=== PATIENT | female | born 1990 | race Caucasian/White ===

== ENCOUNTER → 2021-02-01 09:58 | Outpatient (CLI) | payer BC, SELFPAY ==
--- NOTE | ~2021-02-01 | US_ITS ---
EXAMINATION: US OB >= 14 weeks Fetus DATE: 02/01/2021 10:55 INDICATION: Second trimester anatomic survey TECHNIQUE: Real-time ultrasound of the pelvis was performed. COMPARISON: None. FINDINGS: There is a single living fetus in breech presentation. The placenta is anterior and 3.6 cm from the i nternal cervical os. heart rate is 147 beats per minute (bpm). cardiac activity and feta l movement are noted. The amniotic fluid index is subjectively normal. The ventricular outflow tracts and kidneys are not well evaluated due to positioning. The follo wing anatomy was identified as normal: 4 chamber heart 3 vessel cord cord insertion urinary bladder stomach spine diaphragm ventricles cisterna magna cerebellum The following biometric data were obtained: Biparietal diameter (BPD): 4.1 cm; head circumference (HC): 16.1 cm; abdominal circumference (AC): 13 .9 cm; femur length (FL): 3.2 cm. These measurements are concordant. Estimated weight is 298 g +/- 44 g, which correlates with the 69th percentile when 06/27/2021 i s used as estimated date of delivery. As single measurements, these parameters are each equal to the following estimated gestational ages w ith ranges of +/- 2 standard deviations: BPD: 18 weeks 5 days ( 17 weeks 0 days - 20 weeks 3 days). HC: 18 weeks 6 days ( 17 weeks 3 days - 20 weeks 3 days). AC: 19 weeks 2 days ( 17 weeks 2 days - 21 weeks 3 days). FL: 20 weeks 0 days ( 18 weeks 1 days - 21 weeks 5 days). estimated gestational age based solely on measurements from this exam is 19 weeks 2 days +/- 1 weeks 2 days. IMPRESSION: 1. Single living fetus in breech presentation. 2. Estimated weight is 298 g +/- 44 g, which correlates with the 69th percentile when is used as estimated date of delivery. 3. Incomplete evaluation of the heart and kidneys. Reviewed, dictated and finalized at location A. IMPRESSION: 1. Single living fetus in breech presentation. 2. Estimated weight is 298 g +/- 44 g, which correlates with the 69th per centile when 06/27/2021 is used as estimated date of delivery. 3. Incomplete evaluation of the heart and kidneys.
== END ==
PROVIDERS: Visit Provider Nurse Practitioner Obstetrics & Gynecology
DX: Z34.92 Encounter for supervision of normal pregnancy, unspecified, second trimester (principal); Z3A.19 19 weeks gestation of pregnancy
CPT/HCPCS: 76805

== ENCOUNTER → 2021-02-22 10:53 | Outpatient (CLI) | payer BC, SELFPAY ==
--- NOTE | ~2021-02-22 | US_ITS ---
EXAMINATION: US OB limited DATE: 02/22/2021 11:43 INDICATION: Incomplete anatomic survey during second trimester . TECHNIQUE: Real-time ultrasound of the pelvis was performed. The interpreting radiologist was not pre sent for the study. COMPARISON: 02/01/2021 FINDINGS: There is a single living fetus in breech presentation. The placenta is anterior with caudal margin 4 .1 cm from the internal cervical os. heart rate is 136 beats per minute (bpm). The amniotic flu id volume is subjectively normal. The heart and kidneys are normal. IMPRESSION: 1. Single living fetus in breech presentation with heart rate of bpm. 2. The heart and kidneys are normal Reviewed, dictated and finalized at location A.
== END ==
PROVIDERS: Visit Provider Obstetrics & Gynecology
DX: Z36.9 Encounter for antenatal screening, unspecified (principal); O32.1XX0 Maternal care for breech presentation, not applicable or unspecified; Z3A.00 Weeks of gestation of pregnancy not specified
CPT/HCPCS: 76815

== ENCOUNTER → 2023-02-15 11:23 | Outpatient (CLI) | payer BC, SELFPAY ==
--- NOTE | ~2023-02-15 | US_ITS ---
EXAMINATION: US OB /maternal detail DATE: 02/15/2023 12:10 INDICATION: Second trimester anatomic survey TECHNIQUE: Real-time ultrasound of the pelvis was performed. COMPARISON: None. FINDINGS: There is a single living fetus in transverse lie. The placenta is posterior and 4.4 cm from the inter nal cervical os. The cervical length is 3 cm. heart rate is 155 beats per minute (bpm). cardiac activity and movement are noted. The amniotic fluid index is subjectively normal. The following anatomy was identified as normal: 4 chamber heart 3 vessel cord cord insertion kidneys urinary bladder stomach spine diaphragm ventricles cisterna magna cerebellum The following biometric data were obtained: Biparietal diameter (BPD): 4.6 cm; head circumference (HC): 17.3 cm; abdominal circumference (AC): 15 .3 cm; femur length (FL): 3.4 cm. These measurements are concordant. Estimated weight is 355 g +/- 53 g, which correlates with the 94th percentile when 07/09/2023 i s used as estimated date of delivery. As single measurements, these parameters are each equal to the following estimated gestational ages w ith ranges of +/- 2 standard deviations: BPD: 19 weeks 5 days ( 18 weeks 0 days - 21 weeks 3 days). HC: 19 weeks 6 days ( 18 weeks 3 days - 21 weeks 2 days). AC: 20 weeks 4 days ( 18 weeks 3 days - 22 weeks 4 days). FL: 20 weeks 4 days ( 18 weeks 6 days - 22 weeks 3 days). estimated gestational age based solely on measurements from this exam is 20 weeks 1 days +/- 1 weeks 3 days. IMPRESSION: 1. Single living fetus in transverse lie. 2. Estimated weight is 355 g +/- 53 g, which correlates with the 94th percentile when 3 is used as estimated date of delivery. Reviewed, dictated and finalized at location F. IMPRESSION: 1. Single living fetus in transverse lie. 2. Estimated weight is 355 g +/- 53 g, which correlates with the 94th per centile when 07/09/2023 is used as estimated date of delivery.
== END ==
PROVIDERS: PCP Pediatrics; Visit Provider Obstetrics & Gynecology Gynecologic Oncology
DX: Z36.9 Encounter for antenatal screening, unspecified (principal)
CPT/HCPCS: 76805